=== PATIENT | male | born 1975 | race Two or more races ===

== ENCOUNTER 2017-08-16 02:58 | Emergency (ER) | payer MEDICAID ==
[~2017-08-16] VITALS: Ht 170.2 cm; Wt 154.2 kg
[2017-08-16] MEDS ORDERED: NALBUPHINE HCL 10 MG/1ml INJECTION IV ONE ×2 (06:00→16:45)
[2017-08-16 06:35] LABS: Basophils # (auto) 0.1 uL; Basophils % (auto) 0.3 % (0.0-2.0); Eosinophils # (auto) 0 uL; Eosinophils % (auto) 0.1 % (0.0-7.0); Hemoglobin 14.9 g/dL (13.5-17.5); Lymphocytes # (auto) 1.4 uL; Lymphocytes % (auto) 7.6 % (10.0-50.0); Mean Corpuscular Hemoglobin 31.6 pg (28.0-32.0); Mean Corpuscular Hgb Conc. 32.5 g/dL (32.0-36.0); Mean Corpuscular Volume 97.2 fL (80.0-100.0); Monocytes # (auto) 1.6 uL; Monocytes % (auto) 9.1 % (0.0-12.0); Neutrophils # (auto) 14.7 uL; Neutrophils % (auto) 82.9 % (37.0-80.0); Platelet Count (auto) 209 10^3/uL (140-450); Red Blood Cells 4.73 10^6/uL (4.5-5.90); Red Cell Distribution Width 15.8 % (11.8-14.3); White Blood Cell 17.7 10^3/uL (4.4-10.8)
[2017-08-16 07:05] LABS: Albumin 3.1 g/dL (3.4-5.0); BUN/Creatinine Ratio 18.1; Bilirubin, Total 0.7 mg/dL (0.2-1.0); Calcium 8.3 mg/dL (8.5-10.1); Potassium 3.6 mmol/L (3.5-5.1); Total Protein 6.1 g/dL (6.4-8.2)
[2017-08-16] MEDS ORDERED: SODIUM CHLORIDE 0.9% 1,000 ML IV ONE (09:30)
[2017-08-16 11:50] LABS: Basophils # (auto) 0.1 uL; Basophils % (auto) 0.5 % (0.0-2.0); Eosinophils # (auto) 0.1 uL; Hematocrit 47.3 % (41.0-53.0); Hemoglobin 15.3 g/dL (13.5-17.5); Lymphocytes # (auto) 0.9 uL; Lymphocytes % (auto) 6.9 % (10.0-50.0); Mean Corpuscular Hemoglobin 31.6 pg (28.0-32.0); Mean Corpuscular Hgb Conc. 32.3 g/dL (32.0-36.0); Mean Corpuscular Volume 97.8 fL (80.0-100.0); Monocytes # (auto) 0.7 uL; Monocytes % (auto) 5.4 % (0.0-12.0); Neutrophils # (auto) 11.6 uL; Neutrophils % (auto) 86.2 % (37.0-80.0); Platelet Count (auto) 190 10^3/uL (140-450); Red Blood Cells 4.83 10^6/uL (4.5-5.90); White Blood Cell 13.5 10^3/uL (4.4-10.8)
[2017-08-16 12:07] LABS: BUN/Creatinine Ratio 17.2; Potassium 4.6 mmol/L (3.5-5.1)
[2017-08-16] MEDS ORDERED: IOHEXOL 300 MG/ML 100ML BOTTLE IJ ONE (12:36)
[2017-08-16 13:46] LABS: Urine Bacteria NONE SEEN /hpf (None Seen); Urine Blood 2+ /uL (Negative); Urine Mucus FEW (None Seen); Urine Specific Gravity 1.029 (1.001-1.035); Urine WBC 10 /hpf (0 - 3)
[2017-08-16 14:01] LABS: Alcohol, Urine < 3.0 mg/dL (0-5); Amphetamine Screen, Urine NEGATIVE (NEGATIVE); Barbiturate Scree,Urine NEGATIVE (NEGATIVE); Benzodiazephine Screen, Urine NEGATIVE (NEGATIVE); Cannabinoid Screen, Urine POSITIVE (NEGATIVE); Cocaine Screen, Urine NEGATIVE (NEGATIVE); Phencyclidine Screen, Urine NEGATIVE (NEGATIVE)
[2017-08-16 14:06] LABS: Opiate Scree,Urine NEGATIVE (NEGATIVE)
[2017-08-16] MEDS ORDERED: HYDROcodone-ACET 5/325MG TAB PO ONE (14:15)
[2017-08-16 18:25] VITALS: BP 117/50
== END 2017-08-16 18:41 | disposition short-term general hospital (02) ==
LOC: EDBD 02:58 → ER 03:08
DX: S32.029A Unspecified fracture of second lumbar vertebra, initial encounter for closed fracture (principal); S32.059A Unspecified fracture of fifth lumbar vertebra, initial encounter for closed fracture; S32.301A Unspecified fracture of right ilium, initial encounter for closed fracture; M47.816 Spondylosis without myelopathy or radiculopathy, lumbar region; S00.03XA Contusion of scalp, initial encounter; K40.90 Unilateral inguinal hernia, without obstruction or gangrene, not specified as recurrent; J32.0 Chronic maxillary sinusitis; S06.0X9A Concussion with loss of consciousness of unspecified duration, initial encounter; R42 Dizziness and giddiness; F17.210 Nicotine dependence, cigarettes, uncomplicated; E66.01 Morbid (severe) obesity due to excess calories; J45.909 Unspecified asthma, uncomplicated; K21.9 Gastro-esophageal reflux disease without esophagitis; E44.1 Mild protein-calorie malnutrition; Z68.43 Body mass index [BMI] 50.0-59.9, adult; V43.52XA Car driver injured in collision with other type car in traffic accident, initial encounter; Y93.89 Activity, other specified; Y92.89 Other specified places as the place of occurrence of the external cause; Y99.8 Other external cause status
CPT/HCPCS: 36415; 70450; 72125; 72131; 74176; 74177; 80048; 80053; 80307; 81001; 85025; 96361; 96374; 96375; 99285; J2300; J7030; Q9967